=== PATIENT | male | born 1960 | race African-American/Black ===

== ENCOUNTER 2021-02-23 12:27 | Emergency (ER) | payer SELFPAY ==
[~2021-02-23] VITALS: Ht 162.6 cm; Wt 65.9 kg
[2021-02-23] MEDS ORDERED: TAMSULOSIN 0.4 MG CAP.ER.24H. PO ONE (13:00)
--- NOTE | 2021-02-23 13:05 | PHYS DOC ---
Past Medical History Smoking Status: Current Every Day Smoker Alcohol Use: Occasionally Drug Use: Amphetamine, Cocaine General Adult EDM: Chief Complaint: URINARY RETENTION HPI: HPI: Patient is a 60 year old male who presented to ER for evaluation of not able to urinate for last 4 days. Patient said he was doing some methamphetamine and cocaine for 5 days ago and then afterward he had trouble urinating. Patient said whenever he tried to urinate he had very little, and then have to go again 30 minutes later and then has some more come out. Patient denies any abdominal pain, no nausea or vomiting. Patient had the same problem like this when he abused drugs in the past. Patient said he has been sober for about 9 years until 5 days ago. Review of Systems: Review of Systems: Constitutional: Denies fever or chills. [] Eyes: Denies change in visual acuity. [] HENT: Denies nasal congestion or sore throat. [] Respiratory: Denies cough or shortness of breath. [] Cardiovascular: Denies chest pain or edema. [] GI: Denies abdominal pain, nausea, vomiting, bloody stools or diarrhea. [] : Not able to urinate. [] Musculoskeletal: Denies back pain or joint pain. [] Integument: Denies rash. [] Neurologic: Denies headache, focal weakness or sensory changes. [] Endocrine: Denies polyuria or polydipsia. [] Lymphatic: Denies swollen glands. [] Psychiatric: Denies depression or anxiety. [] Heart Score: C/O Chest Pain: N/A Risk Factors: Risk Factors: DM, Current or recent (<one month) smoker, HTN, HLP, family history of CAD, obesity. Risk Scores: Score 0 - 3: 2.5% MACE over next 6 weeks - Discharge Home Score 4 - 6: 20.3% MACE over next 6 weeks - Admit for Clinical Observation Score 7 - 10: 72.7% MACE over next 6 weeks - Early Invasive Strategies Current Medications: Current Medications Medications (Trade) Dose Ordered Sig/Bertin Start Time Stop Time Status Last Admin Dose Admin Tamsulosin HCl (Flomax) 0.4 mg 1X ONCE 02/23/21 13:00 02/23/21 13:01 UNV Physical Exam: PE: Constitutional: Well developed, well nourished, no acute distress, non-toxic appearance. [] HENT: Normocephalic, atraumatic, bilateral external ears normal, oropharynx moist, no oral exudates, nose normal. [] Eyes: PERRLA, EOMI, conjunctiva normal, no discharge. [] Neck: Normal range of motion, no tenderness, supple, no stridor. [] Cardiovascular:Heart rate regular rhythm, no murmur [] Lungs & Thorax: Bilateral breath sounds clear to auscultation [] Abdomen: Bowel sounds normal, soft, no tenderness, no masses, no pulsatile masses. [] Skin: Warm, dry, no erythema, no rash. [] Back: No tenderness, no CVA tenderness. [] Extremities: No tenderness, no cyanosis, no clubbing, ROM intact, no edema. [] Neurologic: Alert and oriented X 3, normal motor function, normal sensory function, no focal deficits noted. [] Psychologic: Affect normal, judgement normal, mood normal. [] Current Patient Data: Labs: Laboratory Tests Test 02/23/21 12:45 02/23/21 13:15 Urine Opiates Screen Neg Urine Methadone Screen Neg Urine Barbiturates Neg Urine Phencyclidine Screen Neg Urine Amphetamine/Methamphetamine Neg Urine Benzodiazepines Screen Neg Urine Cocaine Screen Pos Urine Cannabinoids Screen Neg Urine Ethyl Alcohol Neg Sodium Level 141 mmol/L Potassium Level 3.7 mmol/L Chloride Level 105 mmol/L Carbon Dioxide Level 25 mmol/L Anion Gap 11 Blood Urea Nitrogen 15 mg/dL Creatinine 1.1 mg/dL Estimated GFR (Cockcroft-Gault) 83.2 BUN/Creatinine Ratio 14 Glucose Level 108 mg/dL Calcium Level 9.1 mg/dL Total Bilirubin 0.4 mg/dL Aspartate Amino Transf (AST/SGOT) 27 U/L Alanine Aminotransferase (ALT/SGPT) 29 U/L Alkaline Phosphatase 101 U/L Total Protein 7.9 g/dL Albumin 4.1 g/dL Albumin/Globulin Ratio 1.1 Current Medications Medications (Trade) Dose Ordered Sig/Bertin Route PRN Reason Start Time Stop Time Status Last Admin Dose Admin Tamsulosin HCl (Flomax) 0.4 mg 1X ONCE PO 02/23/21 13:00 02/23/21 13:40 DC 02/23/21 13:43 EKG: EKG: [] Radiology/Procedures: Radiology/Procedures: [] Course & Med Decision Making: Course & Med Decision Making Pertinent Labs and Imaging studies reviewed. (See chart for details) Patient is a 60-year-old male who presented to ER for evaluation of urinary retention. Bladder scan showed more than 500 cc of urine in his bladder. Jerez catheter was advanced. Patient was discharged home with Jerez catheter in place, he will need to follow-up with urology for outpatient evaluation and treatment. Dragon Disclaimer: Dragon Disclaimer: This electronic medical record was generated, in whole or in part, using a voice recognition dictation system. Departure Departure Impression: Primary Impression: Acute urinary retention Additional Impression: Substance abuse Disposition: HOME / SELF CARE / HOMELESS Condition: IMPROVED Referrals: UNKNOWN PCP NAME (PCP) PLEASE CALL [facility] UROLOGY DEPARTMENT FOR FOLLOW UP THIS WEEK TO HAVE YOUR JEREZ CATHETER REMOVED. The phone number is [phone] Patient Instructions: Substance Abuse-Brief, Urinary Retention, Acute, Male Additional Instructions: Thank you for visiting our Emergency Department. We appreciate you trusting us with your care. If any additional problems come up don't hesitate to return to visit us. Please follow up with your primary care provider so they can plan additional care if needed and know about the problem that you had. If symptoms worsen come back to the Emergency Department. Any concerning symptoms that start such as chest pain, shortness of air, weakness or numbness on one side of the body, running high fevers or any other concerning symptoms return to the ER. MARSHAL LOPEZ DO Feb 23, 2021 13:05
[2021-02-23 13:21] LABS: BARBITURATES NEG (NEG); BENZODIAZEPINES NEG (NEG); CANNABINOIDS NEG (NEG); COCAINE POS (NEG); METHADONE NEG (NEG); OPIATES NEG (NEG); PHENCYCLIDINE NEG (NEG)
[2021-02-23 13:28] LABS: AMPHETAMINE/METHAMPHETAMINE NEG (NEG)
[2021-02-23 13:42] LABS: CALCIUM 9.1 mg/dL (8.5-10.1); CREATININE 1.1 mg/dL (0.7-1.3); GFR 83.2; POTASSIUM 3.7 mmol/L (3.5-5.1)
[2021-02-23 13:48] LABS: ALBUMIN 4.1 g/dL (3.4-5.0); ALBUMIN/GLOBULIN RATIO 1.1 (1.0-1.7); TOTAL BILIRUBIN 0.4 mg/dL (0.2-1.0); TOTAL PROTEIN 7.9 g/dL (6.4-8.2)
[2021-02-23 15:41] VITALS: BP 126/80
== END 2021-02-23 15:50 | disposition home or self-care (01) ==
LOC: ER 12:27
DX: R33.9 Retention of urine, unspecified (principal); F15.10 Other stimulant abuse, uncomplicated; F14.10 Cocaine abuse, uncomplicated
CPT/HCPCS: 36415; 51702; 80053; 80307; 99285; A4314

== ENCOUNTER 2021-02-25 12:21 | Emergency (ER) | payer SELFPAY ==
[~2021-02-25] VITALS: Ht 162.6 cm; Wt 66.4 kg
[2021-02-25 12:57] VITALS: BP 126/86
[2021-02-25] MEDS ORDERED: TAMS0.4C97 PO (13:50)
--- NOTE | 2021-02-25 13:51 | ED.ADGEN ---
Past Medical History Past Medical History: Bipolar, Schizophrenia Additional Past Medical Histor: URINARY RETENTION Past Surgical History: No Surgical History Smoking Status: Current Every Day Smoker Alcohol Use: Occasionally Drug Use: Amphetamine, Cocaine General Adult EDM: Chief Complaint: URINE CATHETER PROBLEM HPI: HPI: Patient is a 60 year old AA male who presents emergency department with request for catheter to be taken out. Patient reports that 2 days ago he was seen in the ER and had a catheter placed after he was not able to void normally. Patient reports that he has been taking his father's Flomax until recently. Patient states as long as he takes Flomax he is able to void without any problems. Patient reports that he is contacted 3 different urology offices and is not able to get in anytime soon to have the Eaton removed. He requests that the Eaton that was placed here 2 days ago be removed. He denies any fever, cough, shortness of breath, chest pain, abdominal pain, nausea, vomiting, diarrhea, rash, or hematuria. Patient currently denies any pain. Review of Systems: Review of Systems: Complete ROS is negative unless otherwise noted in HPI. Current Medications: Current Medications Medications (Trade) Dose Ordered Sig/Bertin Start Time Stop Time Status Last Admin Dose Admin Tamsulosin HCl (Flomax) 0.4 mg 1X ONCE 02/25/21 14:30 02/25/21 14:33 DC 02/25/21 14:58 0.4 MG Allergies: Allergies: Allergies Coded Allergies Type Severity Reaction Last Updated Verified No Known Drug Allergies 02/23/21 No Physical Exam: PE: See Above Constitutional: Well developed, well nourished, no acute distress, non-toxic appearance. [] HENT: Normocephalic, atraumatic, bilateral external ears normal, nose normal. [] Eyes: PERRLA, EOMI, conjunctiva normal, no discharge. [] Neck: Normal range of motion, no stridor. [] Cardiovascular:Heart rate regular rhythm Lungs & Thorax: Respirations even and unlabored, no retractions, no respiratory distress Abdomen: soft, no tenderness Male : Eaton catheter in place draining clear yellow urine Skin: Warm, dry, no erythema, no rash. [] Extremities: No cyanosis, ROM intact, no edema. [] Neurologic: Alert and oriented X 3, normal motor, normal sensory, no focal deficits noted. [] Psychologic: Affect normal, judgement normal, mood normal. [] Current Patient Data: Vital Signs: Vital Signs Date Time Temp Pulse Resp B/P (MAP) Pulse Ox O2 Delivery O2 Flow Rate FiO2 02/25/21 12:57 98.0 77 18 126/86 (99) 99 Room Air 98.0 EKG: EKG: [] Heart Score: C/O Chest Pain: No Risk Scores: Score 0 - 3: 2.5% MACE over next 6 weeks - Discharge Home Score 4 - 6: 20.3% MACE over next 6 weeks - Admit for Clinical Observation Score 7 - 10: 72.7% MACE over next 6 weeks - Early Invasive Strategies Radiology/Procedures: Radiology/Procedures: [] Course & Med Decision Making: Course & Med Decision Making Pertinent Labs and Imaging studies reviewed. (See chart for details) 60-year-old male presented emergency department with request for catheter to be removed. Patient was seen here 2 days prior and had a catheter placed for acute urinary retention. Patient states he is unable to get in with a urologist anytime soon and every urology office that he called told him to go back to the ER where he was placed to have it taken out. Patient states all he needs is a prescription for Flomax when he takes Flomax he does not have any problems urinating. I advised the patient that I will take out the catheter and I will prescribe a 30-day supply of Flomax but the patient needs to follow-up with urology or his primary care doctor for further evaluation of his urinary retention problems. I advised the patient that urology services are not offered at this hospital or at [facility], if he is unable to void I recommend that he goes to a facility with urology coverage. Patient verbalized an understanding of home care, medications, follow-up, and return to ED instructions and was in agreement with the plan of care. [] Dragon Disclaimer: Dragon Disclaimer: This electronic medical record was generated, in whole or in part, using a voice recognition dictation system. Departure Departure Impression: Primary Impression: Encounter for Eaton catheter removal Additional Impression: Difficulty voiding Disposition: HOME / SELF CARE / HOMELESS Condition: STABLE Referrals: UNKNOWN PCP NAME (PCP) Patient Instructions: Urinary Retention, Acute, Male, [id number] Additional Instructions: Fill the prescription and use it as directed, follow-up with urologist as instructed. If you are unable to void again I recommend that you go to a facility that does have urology coverage. There are no urology services available at [facility] or [facility]. Scripts Tamsulosin Hcl (FLOMAX) 0.4 Mg Cap.er.24h 1 CAP PO DAILY for 30 Days, #30 CAP 0 Refills Prov: SALINAS PAZ APRN 02/25/21 Attending Signature Attending Signature I have reviewed the PA/MILLING MACHINE OPERATOR's note and plan of care. I was available for consultation as needed during the patient's visit in the emergency department. I agree with the clinical impression, plan, and disposition. Problem Qualifiers SALINAS PAZ APRN Feb 25, 2021 13:51 JOSY FERGUSON DO Feb 28, 2021 12:57
[2021-02-25] MEDS ORDERED: TAMSULOSIN 0.4 MG CAP.ER.24H. PO ONE (14:30)
== END 2021-02-25 15:09 | disposition home or self-care (01) ==
LOC: ER 12:21
DX: Z46.6 Encounter for fitting and adjustment of urinary device (principal); R39.198 Other difficulties with micturition; F31.9 Bipolar disorder, unspecified; F20.9 Schizophrenia, unspecified; F17.200 Nicotine dependence, unspecified, uncomplicated
CPT/HCPCS: 99283

== ENCOUNTER 2021-12-20 10:28 | Emergency (ER) | payer MEDICAID ==
[~2021-12-20] VITALS: Ht 157.5 cm; Wt 69.3 kg
[~2021-12-20 10:28] MED LIST: TAMS0.4C97 PO
[2021-12-20 11:18] VITALS: BP 139/80
[2021-12-20 12:20] LABS: BACTERIA,URINE 0 /HPF (0-FEW); RBC,URINE 0 /HPF (0-2); WBC,URINE 0 /HPF (0-4)
[2021-12-20] MEDS ORDERED: TAMS0.4C97 PO (13:04)
[2021-12-20] MEDS ORDERED: DOXY100C3 PO (13:04)
--- NOTE | 2021-12-20 13:04 | PHYS DOC ---
Past Medical History Past Medical History: Bipolar, Schizophrenia Additional Past Medical Histor: URINARY RETENTION Past Surgical History: No Surgical History Smoking Status: Current Every Day Smoker Alcohol Use: Occasionally Drug Use: Amphetamine, Cocaine General Adult EDM: Chief Complaint: PAIN ON URINATION HPI: HPI: Patient is a 61-year-old male who presents today via [facility] with complaint of urinary frequency. Patient states that he has had symptoms ongoing for quite some time now little over 6 months to a year, with urinary frequency and difficulty starting his stream he says he has been taking someone else's Flomax for his symptoms and he said he ran out 3 days ago so his symptoms have worsened with inability to void. Patient was seen here last March and was given information about urology and seeing them for further evaluation of his urinary difficulties he states he has not seen anybody for that, he at the time was also given a prescription for Flomax 0.4 mg to be taken on a nightly basis for his issues. He said that he has not followed up with anybody and that he is only here for his penile drip and for a prescription for Flomax. Review of Systems: Review of Systems: Constitutional: Denies fever or chills. [] Eyes: Denies change in visual acuity. [] HENT: Denies nasal congestion or sore throat. [] Respiratory: Denies cough or shortness of breath. [] Cardiovascular: Denies chest pain or edema. [] GI: Denies abdominal pain, nausea, vomiting, bloody stools or diarrhea. [] : dysuria/difficulty starting stream. [] Musculoskeletal: Denies back pain or joint pain. [] Integument: Denies rash. [] Neurologic: Denies headache, focal weakness or sensory changes. [] Endocrine: Denies polyuria or polydipsia. [] Lymphatic: Denies swollen glands. [] Psychiatric: Denies depression or anxiety. [] Heart Score: C/O Chest Pain: No Risk Factors: Risk Factors: DM, Current or recent (<one month) smoker, HTN, HLP, family history of CAD, obesity. Risk Scores: Score 0 - 3: 2.5% MACE over next 6 weeks - Discharge Home Score 4 - 6: 20.3% MACE over next 6 weeks - Admit for Clinical Observation Score 7 - 10: 72.7% MACE over next 6 weeks - Early Invasive Strategies Allergies: Allergies: Allergies Coded Allergies Type Severity Reaction Last Updated Verified No Known Drug Allergies 02/23/21 No Physical Exam: PE: Constitutional: Well developed, well nourished, no acute distress, non-toxic appearance. [] HENT: Normocephalic, atraumatic, bilateral external ears normal, oropharynx moist, no oral exudates, nose normal. [] Eyes: PERRLA, EOMI, conjunctiva normal, no discharge. [] Neck: Normal range of motion, no tenderness, supple, no stridor. [] Cardiovascular:Heart rate regular rhythm, no murmur [] Lungs & Thorax: Bilateral breath sounds clear to auscultation [] Abdomen: Bowel sounds normal, soft, no tenderness, no masses, no pulsatile masses. [] Skin: Warm, dry, no erythema, no rash. [] Back: No tenderness, no CVA tenderness. [] Extremities: No tenderness, no cyanosis, no clubbing, ROM intact, no edema. [] Neurologic: Alert and oriented X 3, normal motor function, normal sensory function, no focal deficits noted. [] Psychologic: Affect normal, judgement normal, mood normal. [] Current Patient Data: Labs: Laboratory Tests Test 12/20/21 11:42 Urine Collection Type Unknown Urine Color (Auto) Light yellow Urine Turbidity Clear Urine pH (Auto) 6.5 (<5.0-8.0) Urine Specific Hamilton 1.014 (1.000-1.030) Urine Protein (Auto) Negative mg/dL (Negative) Urine Glucose (Auto)(UA) Negative mg/dL (Negative) Urine Ketones (Auto) Negative mg/dL (Negative) Urine Blood (Auto) Negative (Negative) Urine Nitrite Negative (Negative) Urine Bilirubin (Auto) Negative (Negative) Urine Urobilinogen (Auto) Normal mg/dL (Normal) Urine Leukocyte Esterase (Auto) Negative (Negative) Urine RBC 0 /HPF (0-2) Urine WBC 0 /HPF (0-4) Urine Squamous Epithelial Cells Few /LPF Urine Bacteria 0 /HPF (0-FEW) Vital Signs: Vital Signs Date Time Temp Pulse Resp B/P (MAP) Pulse Ox O2 Delivery O2 Flow Rate FiO2 12/20/21 11:18 98.4 86 18 139/80 (99) 98 Room Air 98.4 EKG: EKG: [] Radiology/Procedures: Radiology/Procedures: [] Course & Med Decision Making: Course & Med Decision Making Pertinent Labs and Imaging studies reviewed. (See chart for details) Patient's urine does not show any acute signs of infection at this time, with the patient's reporting penile drip we will treat him for an STI, he will be given an IM injection of ceftriaxone while here in the emergency department will also be given doxycycline 100 mg twice daily for 7 days as well, patient will also be given a prescription for Flomax 0.4 mg to be taken 1 tablet at nighttime and he is also encouraged to follow-up with urology as soon as possible. Dragon Disclaimer: Dragon Disclaimer: This electronic medical record was generated, in whole or in part, using a voice recognition dictation system. Departure Departure Impression: Primary Impression: Sexually transmitted disease exposure Additional Impression: H/O urinary retention Disposition: HOME / SELF CARE / HOMELESS Condition: STABLE Referrals: UNKNOWN PCP NAME (PCP) MYRNA DIOP DO Patient Instructions: Sexually Transmitted Disease, Urinary Retention, Acute, Male Additional Instructions: Doxycycline take 1 tablet twice daily for 7 full days for this STI exposure and complaint of penile discharge Flomax 0.4 mg take 1 tablet at night as needed for urinary retention issues Follow-up with your primary care physician or the urologist Dr. Diop noted on the referral section or one of the listed clinics below for further evaluation and management of her urinary retention issues. [facility] [address] [place] [address] [facility] [address] [place] [address] [facility] [address] [facility] [place] [address] [facility] [address] [place] [address] [facility] [address] [place] [address] [facility] [address] [place] [address] [facility] [address] [place] [address] [facility] [address] [place] [address] [facility] [address] [place] [address] [facility] [address] [place] [address] Scripts Doxycycline Hyclate (DOXYCYCLINE HYCLATE) 100 Mg Capsule 1 CAP PO BID, #14 CAP Prov: AMIRAH DEXTER HAND MOLDER AND CASTER 12/20/21 Tamsulosin Hcl (FLOMAX) 0.4 Mg Cap.er.24h 1 CAP PO HS, #30 CAP Prov: AMIRAH DEXTER [employer] MOLDER AND CASTER 12/20/21 AMIRAH DEXTER [employer] MOLDER AND CASTER Dec 20, 2021 13:04
[2021-12-20] MEDS ORDERED: cefTRIAXone IM 500 MG VIAL. IM ONE (13:15)
== END 2021-12-20 13:20 | disposition home or self-care (01) ==
LOC: ER 10:28
DX: R33.9 Retention of urine, unspecified (principal); Z20.2 Contact with and (suspected) exposure to infections with a predominantly sexual mode of transmission; R30.0 Dysuria; R35.0 Frequency of micturition; F31.9 Bipolar disorder, unspecified; F20.9 Schizophrenia, unspecified; F17.200 Nicotine dependence, unspecified, uncomplicated
CPT/HCPCS: 81001; 87491; 87591; 96372; 99283; J0696